=== PATIENT | female | born 1950 | race Caucasian/White ===

== ENCOUNTER 2024-08-04 15:51 | Emergency (ER) | payer MEDICARE ==
[2024-08-04] MEDS ORDERED: Boostrix 0.5 ML (Tdap) VIAL (>/=7 yrs of age) ONE (16:57)
[2024-08-04] MEDS ORDERED: Bacitracin 1 PK ONE (16:57)
[2024-08-04] MEDS ORDERED: Lidocaine 1% PF 5 ML VIAL ONE (16:57)
[2024-08-04] MEDS ORDERED: traMADol HCl 50 MG TAB ONE (20:07)
== END 2024-08-04 20:20 | disposition home or self-care (01) ==
LOC: MADERS 15:51
DX: S72.402A Unspecified fracture of lower end of left femur, initial encounter for closed fracture (principal); S41.112A Laceration without foreign body of left upper arm, initial encounter; S80.02XA Contusion of left knee, initial encounter; I10 Essential (primary) hypertension; W01.0XXA Fall on same level from slipping, tripping and stumbling without subsequent striking against object, initial encounter; Y92.000 Kitchen of unspecified non-institutional (private) residence as the place of occurrence of the external cause
CPT/HCPCS: 90471; 90715